=== PATIENT | male | born 1975 ===

== ENCOUNTER → 2023-05-11 11:55 | Outpatient (REF) | payer OTHER, SELFPAY | LOC: MRI 3T 11:55 | PROVIDERS: ATTENDING PHYSICIAN Surgery | DX: C20 Malignant neoplasm of rectum (principal) | CPT/HCPCS: 72197; A9575 ==

== ENCOUNTER → 2023-05-17 15:13 | Outpatient (REF) | payer OTHER, SELFPAY | LOC: RAD 15:13 | PROVIDERS: ATTENDING PHYSICIAN Surgery | DX: C20 Malignant neoplasm of rectum (principal) | CPT/HCPCS: 71270; 74178; Q9967 ==

== ENCOUNTER → 2023-05-31 06:26 | Day surgery (SDC) | payer OTHER, SELFPAY | LOC: GI 06:26 | PROVIDERS: ATTENDING PHYSICIAN Surgery | DX: Z12.11 Encounter for screening for malignant neoplasm of colon (principal); K62.4 Stenosis of anus and rectum; C20 Malignant neoplasm of rectum; Z85.048 Personal history of other malignant neoplasm of rectum, rectosigmoid junction, and anus | CPT/HCPCS: 45380; 88305; 88341; 88342 ==

== ENCOUNTER 2023-08-03 06:15 | Inpatient (IN) | payer OTHER, SELFPAY ==
[2023-08-01 08:15] VITALS: BMI 25.8
[2023-08-01 08:53] LABS: Hematocrit 41.7 % (39.0-52.0); Hemoglobin 12.6 g/dL (13.0-18.0); Mean Corp Hgb Conc. 30.2 g/dL (33.0-37.0); Mean Corpuscular Hgb 20.6 pg (27.0-31.0); Mean Platelet Volume 8.4 fL (7.4-10.4); Platelet Count 400 10^3/uL (130-400); Red Blood Cell Count 6.13 10^6/uL (4.70-6.10); White Blood Cell Count 6.4 10^3/uL (4.8-10.8)
[2023-08-01 09:01] LABS: INR 1.08; PT 13.8 Sec (11.4-14.6)
[2023-08-01 09:02] LABS: APTT 26.4 Sec (23.4-35.0)
[2023-08-01 09:10] LABS: ALT (SGPT) 18 U/L (0-50); AST (SGOT) 36 U/L (17-59); Albumin 4.1 g/dl (3.5-5.0); Alkaline Phosphatase 102 U/L (38-126); Blood Urea Nitrogen 15 mg/dl (9-20); Calcium 9.4 mg/dl (8.4-10.2); Carbon Dioxide 27 mmol/L (22-30); Chloride 101 mmol/L (98-107); Estimated Creatinine Clearance 95 ml/min; Glucose 88 mg/dl (70-99); Sodium 137 mmol/L (135-145); Total Bilirubin 0.5 mg/dl (0.2-1.3); Total Protein 7.3 g/dl (6.3-8.2); eGFR > 60.00
[2023-08-01 09:44] LABS: CEA 1.69 ng/ml
[2023-08-01 09:45] LABS: Glycohemoglobin (HgbA1c) 5.5 % (4.0-5.6)
[2023-08-03] VITALS (17 sets, daily range): BP systolic 0–166; BP diastolic 48–90; BMI 25.8
[2023-08-03] MEDS: NORMOSOL-R 1000 IV ×2 (06:35→17:10)
[2023-08-03] MEDS: TYLENOL 1000 MG PO (06:44)
[2023-08-03] MEDS: HEPARIN 5000 UNITS SC (06:44)
[2023-08-03] MEDS: ENTEREG 12 MG PO (06:44)
--- NOTE | 2023-08-03 14:54 | W.OR.REC1 ---
Rectal Surgery Post Op Note
Immediate Post Op
Primary Surgeon: Dima Gonzalez MD
Assistants: RHIANNA Garrison and Tracey Ramirez PA-C
Urologist: Prince Bourgeois MD
Pre-op Diagnosis: Mid rectal cancer s/p JAMES
Post-op Diagnosis: Same
Procedure Performed: Cystoscopy with bilateral ureteral stents/ICG
Robotic ultra-low anterior resection with diverting loop ileostomy
Anesthesia Type: GET
Specimen / Cultures: Rectosigmoid (suture is proximal and open end is distal)
Distal donut
Estimated Blood Loss: 80cc
Complications: None
Operative Findings: No evidence of metastatic disease
Marked fibrosis at the pelvic inlet
28mm EEA (top of the anal canal)
3cm distal margin plus the donut
#19 Jarrod drain in the pelvis
Patient's daughter updated.
Cancer Report
ASA Score: II
Case Status: Elective
Operation: Low anterior resection (ultra-low)
Modailty: Robotic
Height of lower edge of tumor from anal verge: 5cm
Mobilization of splenic flexure: No
Level of ligation of inferior mesenteric artery: Inferior mesenteric artery
Level of ligation of inferior mesenteric vein: Low
Level of rectal transectiondistal to distal edge of tumor: 3cm plus distal donut
Type of Reconstruction: Stapled end-end
Anastomotic testing method(s): Rectal air infusion under pelvic fluid and Palpation
Creation of stoma: Ileostomy
En bloc resection: No
Metastectomy: No
Completeness of tumor resection: R0
Interoperative Complications: No
Blood transfusion: No
Total Mesorectal Excision photographed: in operative report
[2023-08-03] MEDS: DEMEROL 12.5 MG IV ×2 (15:06→15:16)
[2023-08-03] MEDS: VALIUM INJECTION 2 MG IV (15:32)
[2023-08-03] MEDS: TORADOL 15 MG IV ×2 (16:03→21:18)
[2023-08-03] MEDS: TYLENOL 650 MG PO (16:07)
[2023-08-03] MEDS: DILAUDID 0.5 MG IV ×3 (16:43→19:25)
[2023-08-03] MEDS: FLAGYL 500 MG 100 IV (17:18)
[2023-08-03] MEDS: ATIVAN 1 MG IV (19:37)
[2023-08-03] MEDS: NSS (PRESERVATIVE FREE) 0.5 ML IV (19:38)
[2023-08-03] MEDS: TYLENOL PO (21:21)
[2023-08-04] MEDS: FLAGYL 500 MG 100 IV ×4 (00:01→23:34)
[2023-08-04] MEDS: DILAUDID 0.5 MG IV ×5 (00:07→21:35)
[2023-08-04] MEDS: TYLENOL PO ×2 (00:13→03:46)
[2023-08-04 03:00] VITALS: BP 128/69
[2023-08-04] MEDS: NORMOSOL-R 1000 IV ×2 (03:15→22:12)
[2023-08-04] MEDS: TORADOL 15 MG IV ×4 (03:17→22:13)
[2023-08-04] MEDS: NSS (PRESERVATIVE FREE) 0.5 ML IV ×4 (03:18→22:15)
[2023-08-04] MEDS: ATIVAN 1 MG IV ×4 (03:18→21:15)
[2023-08-04 05:44] LABS: % Basophils 0.2 % (0-2); % Eosinophils 0.3 % (0-6); % Immature Granulocytes 0.5 % (0-0.5); % Lymphocytes 6.4 % (20.5-51.1); % Monocytes 15.8 % (1.7-9.3); % Neutrophils 76.8 % (42.2-75.2); Absolute Immature Granulocytes 0.1 10^3/uL (0-0.05); Absolute Lymphocytes 0.6 10^3/uL (1.2-3.4); Absolute Monocytes 1.5 10^3/uL (0.1-0.6); Absolute Neutrophils 7.3 10^3/uL (1.4-6.5); Hematocrit 37.1 % (39.0-52.0); Hemoglobin 10.9 g/dL (13.0-18.0); Mean Corp Hgb Conc. 29.4 g/dL (33.0-37.0); Mean Corpuscular Hgb 20.1 pg (27.0-31.0); Mean Corpuscular Volume 68.6 fL (80.0-94.0); Mean Platelet Volume 8.6 fL (7.4-10.4); Nucleated Red Blood Cells % 0 % (-); Platelet Count 315 10^3/uL (130-400); Red Blood Cell Count 5.41 10^6/uL (4.70-6.10); Red Cell Dist. Width 19.3 % (11.5-14.5); White Blood Cell Count 9.5 10^3/uL (4.8-10.8)
[2023-08-04 06:00] VITALS: BMI 25.1
[2023-08-04 06:05] LABS: Blood Urea Nitrogen 18 mg/dl (9-20); Calcium 8.1 mg/dl (8.4-10.2); Carbon Dioxide 25 mmol/L (22-30); Chloride 103 mmol/L (98-107); Estimated Creatinine Clearance 95 ml/min; Glucose 88 mg/dl (70-99); Potassium 4.4 mmol/L (3.5-5.1); Sodium 135 mmol/L (135-145); eGFR > 60.00
[2023-08-04 07:00] VITALS: BP 134/77
[2023-08-04] MEDS: FLOMAX 0.400000000000000022 MG PO (08:43)
[2023-08-04] MEDS: ENTEREG 12 MG PO ×2 (08:44→22:13)
[2023-08-04] MEDS: TYLENOL 650 MG PO ×4 (08:44→22:13)
--- NOTE | 2023-08-04 09:02 | W.PN.CRS1 ---
Today's Communication / Plan
-
fulls
lovenox
stent d/c'ed
OOB
Assessment/Plan
-
POD#1 Robotic ultra low anterior resection with diverting loop ileostomy
1. Vitals and labs normal.
2. OOB as tolerated.
3. Advance diet to fulls, d/c IVFs when tolerating po.
4. Loredo to be removed in AM. Stent #2 removed at bedside. Flomax ordered due to low anastamosis.
5. Drain in place - continue until discharge.
6. Lovenox for DVT prophylaxis. TEDS and SCDS in place.
7. Wound RN for ileostomy teaching.
8. OR pathology pending.
9. Pain control: Tylenol/Toradol standing, Dilaudid PRN.
10. Ativan 1mg for anxiety, increased to q6h PRN.
Subjective Data
Procedure
08/03/2023- Robotic ultra low anterior resection with diverting loop ileostomy.
Subjective Data
Date of Service: August 04, 2023
Patient states he has some pain in his lower midline incision but it is controlled. He is hungry. He denies nausea or vomiting. He has some anxiety and the ativan helped but wore off quickly.
Objective Data
-
Vital Signs
Temp Pulse Resp BP Pulse Ox
97.6 F 71 18 134/77 98
08/04/23 07:00 08/04/23 07:00 08/04/23 07:00 08/04/23 07:00 08/04/23 07:00
Intake & Output
08/03/23 08/04/23 08/05/23
06:59 06:59 06:59
Intake Total 2340 / 2340
Output Total 2125 / 2125
Balance 215 / 215
Intake:
Oral fluids 290 / 290
IV fluids (Total) 1949 / 1949
flagyl 50 / 50
normosol 700 / 700
IV piggybacks 100 / 100
Output:
Drain Output (Total) 100 / 100
Right Lower Abdomen Kyle- 100 / 100
Gonzalez
Urine, Loredo 2024 / 2024
Lab Results
08/04/23 04:49
08/04/23 04:49
Physical Exam
-
General: No Acute Distress and AOx3
Abdomen: Soft, Non Distended, Tender (around incisions, mild) and Other (ileostomy warm and pink with stoma chepe in place, bowel sweat. MALIHA drain with serous output. )
Incision: Clear, Dry, Intact
[2023-08-04] MEDS: LEVAQUIN 100 IV (10:15)
[2023-08-04 11:00] VITALS: BP 140/73
--- NOTE | 2023-08-04 14:20 | WOUNDNOTE ---
WOC RN NOTE: Patient visited s/p ileostomy creation on 08/02. Stoma is red and budded. No drainage in pouch at this time. Patient given ileostomy information booklet. Ostomy supplies ordered from [facility] and are at bedside.
[2023-08-04 15:00] VITALS: BP 124/70
--- NOTE | 2023-08-04 15:31 | WOUNDNOTE ---
WOC RN NOTE: With patient's verbal consent, a 8th Story Secure Start Kit was ordered and will be shipped to patient's home.
[2023-08-04] MEDS: LOVENOX 40 MG SC (17:59)
[2023-08-04 23:30] VITALS: BP 148/77
[2023-08-04] MEDS: MELATONIN 5 MG PO (23:34)
[2023-08-05] MEDS: TYLENOL PO ×2 (00:33→05:13)
[2023-08-05] MEDS: NORMOSOL-R IV (00:39)
[2023-08-05] MEDS: DILAUDID 0.5 MG IV ×3 (01:02→09:38)
[2023-08-05] MEDS: TORADOL 15 MG IV ×4 (05:29→21:11)
[2023-08-05 05:52] LABS: % Basophils 0.4 % (0-2); % Eosinophils 3.7 % (0-6); % Immature Granulocytes 0.6 % (0-0.5); % Lymphocytes 8.2 % (20.5-51.1); % Monocytes 13.8 % (1.7-9.3); % Neutrophils 73.3 % (42.2-75.2); Absolute Eosinophils 0.3 10^3/uL (0-0.7); Absolute Immature Granulocytes 0.1 10^3/uL (0-0.05); Absolute Lymphocytes 0.7 10^3/uL (1.2-3.4); Absolute Monocytes 1.2 10^3/uL (0.1-0.6); Absolute Neutrophils 6.1 10^3/uL (1.4-6.5); Hematocrit 37.9 % (39.0-52.0); Hemoglobin 11.3 g/dL (13.0-18.0); Mean Corp Hgb Conc. 29.8 g/dL (33.0-37.0); Mean Corpuscular Hgb 20.5 pg (27.0-31.0); Mean Corpuscular Volume 68.7 fL (80.0-94.0); Mean Platelet Volume 8.3 fL (7.4-10.4); Nucleated Red Blood Cells % 0 % (-); Platelet Count 299 10^3/uL (130-400); Red Blood Cell Count 5.52 10^6/uL (4.70-6.10); Red Cell Dist. Width 19.4 % (11.5-14.5); White Blood Cell Count 8.4 10^3/uL (4.8-10.8)
[2023-08-05 06:00] VITALS: BMI 25.4
[2023-08-05 06:13] LABS: Blood Urea Nitrogen 14 mg/dl (9-20); Calcium 8.6 mg/dl (8.4-10.2); Carbon Dioxide 28 mmol/L (22-30); Chloride 104 mmol/L (98-107); Estimated Creatinine Clearance 95 ml/min; Glucose 91 mg/dl (70-99); Potassium 4.6 mmol/L (3.5-5.1); Sodium 135 mmol/L (135-145); eGFR > 60.00
[2023-08-05 07:00] VITALS: BP 143/74
[2023-08-05] MEDS: FLAGYL 500 MG 100 IV ×3 (07:55→23:01)
[2023-08-05] MEDS: ATIVAN 1 MG IV ×2 (08:00→14:56)
[2023-08-05] MEDS: NSS (PRESERVATIVE FREE) 0.5 ML IV ×2 (08:01→14:56)
[2023-08-05] MEDS: ENTEREG 12 MG PO ×2 (08:02→19:58)
[2023-08-05] MEDS: TYLENOL 650 MG PO ×5 (08:02→23:01)
[2023-08-05] MEDS: FLOMAX 0.400000000000000022 MG PO (08:02)
[2023-08-05] MEDS: LEVAQUIN 100 IV (09:19)
--- NOTE | 2023-08-05 11:22 | W.PN.CRS1 ---
Today's Communication / Plan
-
low residue
roxicodone
Assessment/Plan
-
POD#2 Robotic ultra low anterior resection with diverting loop ileostomy
1. Vitals and labs normal.
2. OOB as tolerated.
3. Advance diet to low residue.
4. D/C shaffer. Post void residual to be done (low anastomosis).
5. Drain in place - continue until discharge.
6. Lovenox for DVT prophylaxis. TEDS and SCDS in place.
7. Wound RN for ileostomy teaching.
8. OR pathology pending.
9. Pain control: Tylenol/Toradol standing, add Roxicodone prn, Dilaudid IV for breakthrough.
10. Ativan 1mg for anxiety q6h PRN.
11. Abx for 72 hours total due to OR spillage.
Subjective Data
Procedure
08/03/2023- Robotic ultra low anterior resection with diverting loop ileostomy.
Subjective Data
Date of Service: August 05, 2023
Patient states he is in 8/10 pain. He has no nausea or vomiting. He tolerated fulls. He has liquid output in his bag.
Objective Data
-
Vital Signs
Temp Pulse Resp BP Pulse Ox
98.0 F 63 18 143/74 98
08/05/23 07:00 08/05/23 07:00 08/05/23 07:00 08/05/23 07:00 08/05/23 08:00
Intake & Output
08/04/23 08/05/23 08/06/23
06:59 06:59 06:59
Intake Total 2340 / 2340 1740 / 1740
Output Total 2125 / 2125 4610 / 4610
Balance 215 / 215 -2870 / -2870
Intake:
Oral fluids 290 / 290 1440 / 1440
IV fluids (Total) 1950 / 1949
flagyl 50 / 50
normosol 700 / 700
IV piggybacks 100 / 100 300 / 300
Output:
Liquid stool amount 1250 / 1250
Ileostomy 1250 / 1250
Drain Output (Total) 100 / 100 110 / 110
Right Lower Abdomen Ykle- 100 / 100 110 / 110
Gonzalez
Urine, Shaffer 2024 3250 / 3250
Lab Results
08/05/23 05:34
08/05/23 05:34
Physical Exam
-
General: No Acute Distress and AOx3
Abdomen: Soft, Non Distended, Tender (around incision sites) and Other (ileostomy warm and pink with liquid stool, stoma chepe in place)
[2023-08-05] MEDS: ROXICODONE 10 MG PO ×3 (12:13→21:13)
--- NOTE | 2023-08-05 14:57 | WOUNDNOTE ---
[facility] RN NOTE: Patient visited to change appliance. This scientific writer reviewed pouch empting with patient. He reports less pain today. Stoma is budded and loop intact. Barrier could not be removed due to close fit around stoma, stoma size and loop. TT
Ida Luis and plan is to keep barrier secure and will reassess Tuesday. MALIHA dressing changed and put to suction. Drainage is serous and slightly blood tinged. There is draining around MALIHA site but skin is intact. KOKO Reyes given update and will
continue to assess MALIHA site. Will continue to follow with patient.
[2023-08-05 15:00] VITALS: BP 150/90
--- NOTE | 2023-08-05 15:03 | WOUNDNOTE ---
[facility] RN NOTE: Patient visited to change appliance. This typewriter mechanic reviewed pouch empting with patient. He reports less pain today. Stoma is budded and loop intact. Barrier could not be removed due to close fit around stoma, stoma size and loop. TT
Ida Luis and plan is to keep barrier secure and will reassess Tuesday. Barrier resecured with micropore tape and barrier rings. MALIHA dressing changed and put to suction. Drainage is serous and slightly blood tinged. There is draining around MALIHA
site but skin is intact. KOKO Reyes given update and will continue to assess MALIHA site. Will continue to follow with patient.
[2023-08-05] MEDS: LOVENOX 40 MG SC (17:07)
--- NOTE | 2023-08-05 18:11 | CM ---
Addendum entered by Jaja Lundberg 08/05/23 18:31:
referrals sent to [facility] and [facility] for vn.
Original Note:
met with patient at bedside.he lives with roommates in house with 3 karen,his bed and bath is on the first level,he ambulates I, and is I with his adl's.his pcp is [facility] and he uses [facility] [place].he has never had
a vn or been to ip rehab.
patient is adm with rectal cancer and is sp low anterior diverting loop ileostomy,wound care nurse cs,drain to be removed,advance to low residue diet,shaffer had to be replaced.plan is home with hcs to sonDonte guajardo juarez's house [address]
anibal gardner.referrals sent to [facility] and [facility].plan home with hcs.
[2023-08-05] MEDS: MELATONIN 5 MG PO (21:13)
[2023-08-05 23:33] VITALS: BP 137/72
[2023-08-06] MEDS: TYLENOL 650 MG PO ×5 (03:45→19:47)
[2023-08-06] MEDS: TORADOL 15 MG IV ×4 (03:46→22:16)
[2023-08-06 06:00] VITALS: BMI 24.7
[2023-08-06] MEDS: ROXICODONE 10 MG PO ×4 (06:13→21:28)
[2023-08-06 07:03] VITALS: BP 135/81
[2023-08-06] MEDS: FLOMAX 0.400000000000000022 MG PO (09:16)
[2023-08-06] MEDS: FLAGYL 500 MG IV (09:19)
--- NOTE | 2023-08-06 10:02 | W.PN.CRS1 ---
Today's Communication / Plan
-
Urology eval
Continue LRD
Assessment/Plan
-
47 yo male with a h/o Mid rectal cancer s/p JAMES
POD#3 Robotic ultra low anterior resection with diverting loop ileostomy
AFVSS
Tolerating diet
High ostomy outputs over the last 24h >2700ml
Urinary retention, shaffer placed after failed voiding trial on 08/04
--continue LRD
--drain in place - continue until discharge.
--Lovenox for DVT prophylaxis. TEDS and SCDS in place.
--Wound RN following for ileostomy teaching.
--OR pathology pending.
--Pain control: Tylenol standing with Roxicodone prn, Dilaudid IV for breakthrough.
--Ativan 1mg for anxiety q6h PRN (changed to PO)
--Completed Abx for 72 hours total due to OR spillage.
--Has been on tamsulosin 0.4mg with failed void trial, will consult urology to evaluate/follow
Anticipate d/c tomorrow if continues to progress well
Subjective Data
Procedure
08/03/2023- Robotic ultra low anterior resection with diverting loop ileostomy.
Subjective Data
Date of Service: August 06, 2023
Patient seen and examined at bedside with Dr. Westfall. Pain improving, better relief with PO oxycodone. Tolerating diet without nausea and vomiting.
Objective Data
-
Vital Signs
Temp Pulse Resp BP Pulse Ox
98.3 F 67 18 135/81 96
08/06/23 07:03 08/06/23 07:03 08/06/23 07:03 08/06/23 07:03 08/06/23 07:03
Intake & Output
08/05/23 08/06/23 08/07/23
06:59 06:59 06:59
Intake Total 1740 / 1740 3060 / 3060
Output Total 4610 / 4610 3995 / 3995
Balance -2870 / -2870 -935 / -935
Intake:
Oral fluids 1440 / 1440 2160 / 2160
IV fluids (Total) 500 / 500
IV piggybacks 300 / 300 400 / 400
Output:
Liquid stool amount 1250 / 1250 2750 / 2750
Ileostomy 1250 / 1250 2750 / 2750
Drain Output (Total) 110 / 110 70 / 70
Right Lower Abdomen Kyle- 110 / 110 70 / 70
Gonzalez
Urine, Shaffer 3250 / 3250 975 / 975
Urine, Voided 200 / 200
Lab Results
08/05/23 05:34
08/05/23 05:34
Physical Exam
-
General: No Acute Distress and AOx3
Abdomen: Soft, Non Distended, Tender (around incision sites) and Other (ileostomy warm and pink with liquid stool, stoma chepe in place, MALIHA with SSF)
Skin: Warm and Dry
Incision: Clear, Dry, Intact (intact glue)
[2023-08-06] MEDS: ATIVAN 1 MG PO ×3 (10:26→22:45)
--- NOTE | 2023-08-06 10:38 | W.PN.URO.CBU ---
Today's Communication / Plan
-
ZENDEJAS OUT AM 06Tuesday REPLACE PRN NO VOID DISETNSION NOON AND IF REPALED THEN TEACH ZENDEJAS AND LG BAG CARE
Assessment / Plan
-
ACUTE URINARY RETENTION MAY BE MULTIFACTORIAL IE ANESTHESIA AND NARCOTIC USE BUR MAY BE OELVIC NERVE INJURY WILL TRY FLOMAX AND VOIDNG TRIAL IF DFAILS THEN HOME WTH ZENDEJAS AND WILL EVALUATE OTPATIENT WITH URODYNAICS ABD TACH CIC
Diagnosis
-
Date of Service: August 06, 2023
-
Patient Diagnosis:ACUTE UTINARY RETENTION AFYTER SURGERY WITH RECTAL CANCER LG NEEDS NARCOITC POOR STRAM 350 CC DRAINED
Post Op Day:
Subjective
-
POOR URINARY STREAM
Objective
-
Vital Signs
Temp Pulse Resp BP Pulse Ox
98.3 F 67 18 135/81 96
08/06/23 07:03 08/06/23 07:03 08/06/23 07:03 08/06/23 07:03 08/06/23 07:03
Intake and Output
08/05/23 08/06/23 08/07/23
06:59 06:59 06:59
Intake Total 1740 / 1740 3060 / 3060
Output Total 4610 / 4610 3995 / 3995
Balance -2870 / -2870 -935 / -935
Intake:
Oral fluids 1440 / 1440 2160 / 2160
IV fluids (Total) 500 / 500
IV piggybacks 300 / 300 400 / 400
Output:
Liquid stool amount 1250 / 1250 2750 / 2750
Ileostomy 1250 / 1250 2750 / 2750
Drain Output (Total) 110 / 110 70 / 70
Right Lower Abdomen Kyle- 110 / 110 70 / 70
Gonzalez
Urine, Zendejas 3250 / 3250 975 / 975
Urine, Voided 200 / 200
Laboratory Results
08/05/23 05:34
08/05/23 05:34
Review of Systems
-
Abdomen/GI: Abdominal Pain
: Difficulty Voiding
Physical Exam
-
General - well developed, well nourished, no acute distress
Chest - clear bilaterally
Abdomen - soft, non-tender, positive bowel sounds, no CVAT, no incisional pain or distention
Genitalia - normal
Rectal - normal
Skin - warm & dry with no rash
Neuro - AOx3, no motor deficits
Extremities - no clubbing, no cyanosis, no edema
Incision - clean, dry
Dressing - clean, dry, intact
Care Review
Data Reviewed
Discussed with: Nursing and Other (GI SURGERY)
CT Scan: Image Pers Reviewed
[2023-08-06 15:10] VITALS: BP 134/80
[2023-08-06] MEDS: FLUSH (NSS) 2 FLUSH IV (15:55)
[2023-08-06] MEDS: LOVENOX 40 MG SC (17:24)
[2023-08-06] MEDS: MELATONIN 5 MG PO (22:45)
[2023-08-06 23:14] VITALS: BP 143/85
[2023-08-07] MEDS: TYLENOL PO (00:31)
[2023-08-07] MEDS: TYLENOL 650 MG PO ×3 (04:22→13:08)
[2023-08-07] MEDS: TORADOL 15 MG IV ×2 (04:22→09:20)
[2023-08-07 06:00] VITALS: BMI 24.5
--- NOTE | 2023-08-07 06:00 | PTCARENOTE ---
At 06:00 removed Loredo catheter (per Dr. Griffith's order), faiza urine electronically documented, placed on Time & Amount; urinal placed in bathroom and patient acknowledged understanding of importance of the need for measuring urine output.
[2023-08-07] MEDS: ROXICODONE 10 MG PO ×2 (06:09→13:19)
[2023-08-07 07:29] VITALS: BP 138/69
[2023-08-07] MEDS: FLOMAX 0.400000000000000022 MG PO (09:20)
[2023-08-07] MEDS: ATIVAN 1 MG PO (09:56)
--- NOTE | 2023-08-07 10:06 | W.PN.URO.CBU ---
Today's Communication / Plan
-
if home with shaffer demonstrate shaffer and leg bag care ty
Assessment / Plan
-
ACUTE URINARY RETENTION MAY BE MULTIFACTORIAL IE ANESTHESIA AND NARCOTIC USE BUR MAY BE OELVIC NERVE INJURY WILL TRY FLOMAX AND VOIDNG TRIAL IF DFAILS THEN HOME WTH SHAFFER AND WILL EVALUATE OTPATIENT WITH URODYNAICS ABD TACH CIC
Diagnosis
-
Date of Service: August 07, 2023
-
Patient Diagnosis:
Post Op Day:
Patient Diagnosis:ACUTE UTINARY RETENTION AFYTER SURGERY WITH RECTAL CANCER LG NEEDS NARCOITC POOR STRAM 350 CC DRAINED
Post Op Day:
Subjective
-
shaffer out home today but not yet voided
Objective
-
Vital Signs
Temp Pulse Resp BP Pulse Ox
97.8 F 61 19 138/69 99
08/07/23 07:29 08/07/23 07:29 08/07/23 07:29 08/07/23 07:29 08/07/23 07:29
Intake and Output
08/06/23 08/07/23 08/08/23
06:59 06:59 06:59
Intake Total 3060 / 3060 1800 / 1800
Output Total 3995 / 3995 2825 / 2825
Balance -935 / -935 -1025 / -1025
Intake:
Oral fluids 2160 / 2160 1800 / 1800
IV fluids (Total) 500 / 500
IV piggybacks 400 / 400
Output:
Liquid stool amount 2750 / 2750 200 / 200
Ileostomy 2750 / 2750 200 / 200
Drain Output (Total) 70 / 70 25 / 25
Right Lower Abdomen Kyle- 70 / 70 25 / 25
Gonzalez
Urine, Shaffer 975 / 975 2600 / 2600
Urine, Voided 200 / 200
Laboratory Results
08/05/23 05:34
08/05/23 05:34
Review of Systems
-
Abdomen/GI: Abdominal Pain
: Difficulty Voiding
Physical Exam
-
General - well developed, well nourished, no acute distress
Chest - clear bilaterally
Abdomen - soft, non-tender, positive bowel sounds, no CVAT, no incisional pain or distention
Genitalia - normal
Rectal - normal
Skin - warm & dry with no rash
Neuro - AOx3, no motor deficits
Extremities - no clubbing, no cyanosis, no edema
Incision - clean, dry
Dressing - clean, dry, intact
Care Review
Data Reviewed
Discussed with: Nursing and Other (gi surgery)
--- NOTE | 2023-08-07 10:44 | W.PN.CRS1 ---
Today's Communication / Plan
-
Dispo planning
Assessment/Plan
-
47 yo male with a h/o Mid rectal cancer s/p JAMES
POD#4 Robotic ultra low anterior resection with diverting loop ileostomy
AFVSS
Tolerating diet
Ostomy outputs have slowed from previous, flatus/stool in appliance
Urinary retention, shaffer placed after failed voiding trial on 08/04, shaffer out for voiding trial today
--continue LRD
--drain removed in anticipation of d/c
--Lovenox for DVT prophylaxis. TEDS and SCDS in place.
--Wound RN following for ileostomy teaching. VNA upon d/c
--OR pathology pending.
--Pain control: Tylenol standing with Roxicodone prn, Dilaudid IV for breakthrough.
--Has been on tamsulosin 0.4mg with failed void trial, urology now following. void trial again today, if fails will d/c home with shaffer for outpatient follow up with urology
D/C later today pending outcome of voiding trial
Subjective Data
Procedure
08/03/2023- Robotic ultra low anterior resection with diverting loop ileostomy.
Subjective Data
Date of Service: August 07, 2023
Patient seen and examined at bedside with Dr. Westfall. Denies n/v. Tolerating diet. OOB/ambulating. Shaffer removed for voiding trial/DTV
Objective Data
-
Vital Signs
Temp Pulse Resp BP Pulse Ox
97.8 F 61 19 138/69 99
08/07/23 07:29 08/07/23 07:29 08/07/23 07:29 08/07/23 07:29 08/07/23 07:29
Intake & Output
08/06/23 08/07/23 08/08/23
06:59 06:59 06:59
Intake Total 3060 / 3060 1800 / 1800
Output Total 3995 / 3995 2825 / 2825
Balance -935 / -935 -1025 / -1025
Intake:
Oral fluids 2160 / 2160 1800 / 1800
IV fluids (Total) 500 / 500
IV piggybacks 400 / 400
Output:
Liquid stool amount 2750 / 2750 200 / 200
Ileostomy 2750 / 2750 200 / 200
Drain Output (Total) 70 / 70 25 /
Right Lower Abdomen Kyle- 70 / 70 /
Gonzalez
Urine, Shaffer 975 / 975 2600 / 2600
Urine, Voided 200 / 200
Lab Results
08/05/23 05:34
08/05/23 05:34
Physical Exam
-
General: No Acute Distress and AOx3
Abdomen: Soft, Non Distended, Tender (around incision sites) and Other (ileostomy warm and pink with liquid stool, stoma chepe in place, MALIHA with SSF (removed))
Skin: Warm and Dry
Incision: Clear, Dry, Intact (intact glue)
--- NOTE | 2023-08-07 13:48 | CM ---
Addendum entered by Melissa Ventura 08/07/23 15:54:
[facility] has declined patient, CM sent referrals to [facility] and formerly [facility] at home. CM spoke with JJ Nevarez who indicated that patient should contact Dr. Gonzalez office with any issues. CM spoke with above companies to request
contact to confirm ability to accept. Patient is aware. Patient contact number is [phone].
Addendum entered by Melissa Ventura 08/07/23 14:43:
CM updated patient and his sister. CM updated [facility] and patient sister to [facility] patient. awaiting response from [facility].
Addendum entered by Melissa Ventura 08/07/23 14:40:
Patient provided updated referral to [facility] address [address], [place] [address] CM updated referral with [facility]; awaiting response.
Original Note:
Patient referral to [facility] declined and CM sent referral to [facility] awaiting response/acceptance. CM will continue to follow for discharge planning needs.
\\
Plan; home with ; awaiting [facility] confirmation of acceptance.
[2023-08-07 14:32] VITALS: BP 158/80
--- NOTE | 2023-08-07 15:21 | W.DCSUMMARY ---
Discharge Summary
Discharge Data
Date of Admission: 08/03/23
Date of Discharge: 08/07/23
-
Pending Results: No
Hospital Course
47 year old male presenting for surgical management of mid rectal cancer status post JAMES with oncology. He underwent a robotic ultra low anterior resection with diverting loop ileostomy without procedural complication. Pathology from OR remains
pending. Ureteral stents placed intraoperatively for identification of the ureters were removed post operatively without incident. The patient failed initial void trial and shaffer catheter was placed post operatively for management. He was followed
by urology on flomax with successful voiding trial on date of discharge. He was instructed to follow with urology as an outpatient if voiding difficulty persists and provided with tamsulosin prescription.
Prior to admission, the patient was regularly taking oxycodone as prescribed by oncology with opioid tolerance noted while inpatient. In addition to acetaminophen and NSAIDs for analgesic management, the oxycodone dosage was increased from 5mg to
10mg post operatively with good pain relief. He also noted being quite anxious during his stay and Ativan was utilized for these symptoms which he reports he had been on previously as prescribed by his PCP. Prescriptions where provided to the
patient on discharge for anxiolytic and analgesic for the short term with discussion regarding possible need for pain management in follow up if pain persists as well as follow up with PCP, especially in regards to anxiety. Outpatient follow up with
surgery arranged in the coming weeks.
Discharge Plan
-
Patient Disposition: Home (Routine Discharge)
Discharge Diagnosis/Procedures: lower anterior resection
Condition: Good
Diet: Low Residue
Activity: No strenuous activity
Additional Activity: No lifting over 10lbs (gallon of milk)
Driving Restrictions: No driving for 1 week
Bathing Restrictions: OK to Shower
Wound Care: Allow glue to naturally fall off. Do not pick at incisions.
Activity Restrictions/Additional Instructions:
Call your surgeon if you have worsening pain, nausea with vomiting or a fever >100.5. Call your urologist if you have difficulty voiding.
Instructions: Low Fiber Diet
Referrals:
Urban Gonzalez MD [Active] - in two weeks
Blu Griffith MD [Active] - (if trouble voiding call Dr Ean [id number] urolgy )
Sravanthi Norris MD [Family Provider] -
Additional Discharge Medication Instructions: Tylenol or Ibuprofen as needed for pain. Maximum amount of Tylenol is 4,000mg in 24 hours. Maximum amount of Ibuprofen is 3,200mg in 24 hours.
Prescriptions:
New
oxycodone 10 mg tablet
10 mg PO Q8H PRN (Reason: severe pain) Qty: 30 0RF
lorazepam 1 mg tablet
1 mg PO BID PRN (Reason: anxiety) Qty: 10 0RF
tamsulosin 0.4 mg Capsule
0.4 mg PO DAILY Qty: 30 0RF
Continued
oxycodone 5 mg Tablet
5 mg PO Q8H PRN (Reason: moderate pain) Qty: 0 0RF
Discontinued
Sutab 1.479-0.188- 0.225 gram Tablet
0 tab PO PER PKG DIR
metronidazole 500 mg Tablet
500 mg PO DIRECTED
Rx Instructions:
PRE-OP
neomycin 500 mg Tablet
1,000 mg PO DIRECTED
Rx Instructions:
PRE-OP
Discharge Orders:
Discharge Patient (As Directed); Ordered 08/07/23
Ordered By: Daysi Nevarez
Discharge Date and Time
Print Language: GERMAN
== END 2023-08-07 16:38 | disposition home health service (06) | DRG 331 ==
LOC: 2 SOUTH 06:15
PROVIDERS: Physician Assistant; ADMITTING PHYSICIAN Surgery; CONSULT PHYSICIAN Specialist; FAMILY PHYSICIAN Family Medicine
PROC: 0DBN4ZZ Excision of Sigmoid Colon, Percutaneous Endoscopic Approach (ICD-10-PCS; 2023-08-03)
PROC: 0T788DZ Dilation of Bilateral Ureters with Intraluminal Device, Via Natural or Artificial Opening Endoscopic (ICD-10-PCS; 2023-08-03)
PROC: 8E0W4CZ Robotic Assisted Procedure of Trunk Region, Percutaneous Endoscopic Approach (ICD-10-PCS; 2023-08-03)
PROC: 0DTP4ZZ Resection of Rectum, Percutaneous Endoscopic Approach (ICD-10-PCS; 2023-08-03)
PROC: 0D1B4Z4 Bypass Ileum to Cutaneous, Percutaneous Endoscopic Approach (ICD-10-PCS; 2023-08-03)
DX: C20 Malignant neoplasm of rectum (principal); F90.9 Attention-deficit hyperactivity disorder, unspecified type; F32.A Depression, unspecified; F41.9 Anxiety disorder, unspecified; R33.9 Retention of urine, unspecified; Z79.891 Long term (current) use of opiate analgesic; Z79.899 Other long term (current) drug therapy; Z87.820 Personal history of traumatic brain injury
CPT/HCPCS: 88304; 88309; 36415; 80048; 80053; 82378; 83036; 85025; 85027; 85610; 85730; 86850; 86900; 86901; A4300; C1769

== ENCOUNTER 2023-10-20 06:01 | Inpatient (IN) | payer OTHER, SELFPAY ==
[2023-10-18 13:53] LABS: % Basophils 0.9 % (0-2); % Eosinophils 4.1 % (0-6); % Immature Granulocytes 0.6 % (0-0.5); % Lymphocytes 18.3 % (20.5-51.1); % Monocytes 12.7 % (1.7-9.3); % Neutrophils 63.4 % (42.2-75.2); Absolute Eosinophils 0.2 10^3/uL (0-0.7); Absolute Lymphocytes 0.9 10^3/uL (1.2-3.4); Absolute Monocytes 0.6 10^3/uL (0.1-0.6); Absolute Neutrophils 2.9 10^3/uL (1.4-6.5); Hematocrit 42.2 % (39.0-52.0); Hemoglobin 12.6 g/dL (13.0-18.0); Mean Corp Hgb Conc. 29.9 g/dL (33.0-37.0); Mean Corpuscular Hgb 20.6 pg (27.0-31.0); Mean Corpuscular Volume 68.8 fL (80.0-94.0); Mean Platelet Volume 8.4 fL (7.4-10.4); Nucleated Red Blood Cells % 0 % (-); Platelet Count 324 10^3/uL (130-400); Red Blood Cell Count 6.13 10^6/uL (4.70-6.10); Red Cell Dist. Width 20.5 % (11.5-14.5); White Blood Cell Count 4.6 10^3/uL (4.8-10.8)
[2023-10-18 13:58] LABS: ALT (SGPT) 33 U/L (0-50); AST (SGOT) 40 U/L (17-59); Albumin 4.2 g/dl (3.5-5.0); Alkaline Phosphatase 105 U/L (38-126); Blood Urea Nitrogen 10 mg/dl (9-20); Calcium 9.2 mg/dl (8.4-10.2); Carbon Dioxide 27 mmol/L (22-30); Chloride 103 mmol/L (98-107); Glucose 86 mg/dl (70-99); Potassium 4.3 mmol/L (3.5-5.1); Sodium 141 mmol/L (135-145); Total Bilirubin 0.6 mg/dl (0.2-1.3); Total Protein 7.3 g/dl (6.3-8.2); eGFR > 60.00
[2023-10-18 14:04] LABS: APTT 25.8 Sec (23.4-35.0); INR 1.02; PT 13.2 Sec (11.4-14.6)
[2023-10-18 14:31] LABS: CEA 1.45 ng/ml
[2023-10-19 09:27] LABS: Glycohemoglobin (HgbA1c) 5.4 % (4.0-5.6)
[2023-10-20] VITALS (16 sets, daily range): BP systolic 114–144; BP diastolic 46–81; BMI 27.2
[2023-10-20] MEDS: NORMOSOL-R/PLASMALYTE-A 1000 IV ×3 (06:42→21:00)
[2023-10-20] MEDS: ENTEREG 12 MG PO (06:53)
[2023-10-20] MEDS: HEPARIN 5000 UNITS SC (06:53)
[2023-10-20] MEDS: TYLENOL 1000 MG PO (06:56)
--- NOTE | 2023-10-20 09:19 | W.IMMPOSTOP ---
Surgical Immed Post Op Note
-
Primary Surgeon: Dima Gonzalez MD
Assistants: RHIANNA Rehman; MARY Leon
Pre-op Diagnosis: Ileostomy
Post-op Diagnosis: Ileostomy
Procedure Performed: Flexible sigmoidoscopy and ileostomy closure
Anesthesia Type: General
Specimen / Cultures: None
Estimated Blood Loss: 15cc
Complications: None
Operative Findings: Normal coloanal anastomosis
Stapled functional end to end anastomosis
Patient's updated.
[2023-10-20] MEDS: DILAUDID 0.5 MG IV ×4 (09:38→12:22)
[2023-10-20] MEDS: TYLENOL 650 MG PO ×4 (11:59→23:04)
[2023-10-20] MEDS: TORADOL 15 MG IV ×3 (11:59→23:05)
--- NOTE | 2023-10-20 12:40 | PTCARENOTE ---
Pt arrived to 2S in bed. Full assessment completed. IVF initiated. Abdominal DSG with a moderate amount of drainage noted. Loredo catheter clean and intact draining yellow urine. PRN dilaudid provided for c/o abdominal pain 08/16. Pt instructed to
ring for assistance getting OOB, verbalized understanding. Bed locked and in the lowest position, safety maintained. Oriented to room and call barnett.
[2023-10-20] MEDS: ATIVAN 0.5 MG PO ×3 (13:33→22:29)
[2023-10-20] MEDS: DILAUDID 1 MG IV ×2 (16:36→21:01)
[2023-10-21] MEDS: DILAUDID 1 MG IV ×2 (01:52→08:23)
[2023-10-21 03:17] VITALS: BP 117/56
[2023-10-21] MEDS: TYLENOL PO ×3 (04:00→23:09)
[2023-10-21] MEDS: TORADOL 15 MG IV ×4 (05:03→23:05)
[2023-10-21 06:18] LABS: % Basophils 0.1 % (0-2); % Immature Granulocytes 0.4 % (0-0.5); % Lymphocytes 6.6 % (20.5-51.1); % Neutrophils 83.9 % (42.2-75.2); Absolute Lymphocytes 0.6 10^3/uL (1.2-3.4); Absolute Monocytes 0.8 10^3/uL (0.1-0.6); Absolute Neutrophils 7.5 10^3/uL (1.4-6.5); Hematocrit 40.6 % (39.0-52.0); Hemoglobin 12.3 g/dL (13.0-18.0); Mean Corp Hgb Conc. 30.3 g/dL (33.0-37.0); Mean Corpuscular Hgb 21.4 pg (27.0-31.0); Mean Corpuscular Volume 70.5 fL (80.0-94.0); Mean Platelet Volume 8.9 fL (7.4-10.4); Nucleated Red Blood Cells % 0 % (-); Platelet Count 306 10^3/uL (130-400); Red Blood Cell Count 5.76 10^6/uL (4.70-6.10); Red Cell Dist. Width 19.9 % (11.5-14.5); White Blood Cell Count 8.9 10^3/uL (4.8-10.8)
[2023-10-21 06:43] LABS: Blood Urea Nitrogen 12 mg/dl (9-20); Calcium 8.7 mg/dl (8.4-10.2); Carbon Dioxide 28 mmol/L (22-30); Chloride 101 mmol/L (98-107); Estimated Creatinine Clearance 98 ml/min; Glucose 88 mg/dl (70-99); Potassium 4.5 mmol/L (3.5-5.1); Sodium 138 mmol/L (135-145); eGFR > 60.00
[2023-10-21] MEDS: NORMOSOL-R/PLASMALYTE-A 1000 IV (07:12)
[2023-10-21 07:23] VITALS: BP 123/79
[2023-10-21] MEDS: ENTEREG 12 MG PO ×2 (08:20→19:58)
[2023-10-21] MEDS: TYLENOL 650 MG PO ×4 (08:20→23:05)
--- NOTE | 2023-10-21 09:09 | W.PN.CRS1 ---
Today's Communication / Plan
-
fulls
Lovenox
DC Loredo
Assessment/Plan
-
POD#1 Flexible sigmoidoscopy and resection and closure of ileostomy.
-Vitals and labs normal
-Tolerating clears, advance to full liquid diet
-Lovenox for DVT prophylaxis. Teds and SCDs in place.
-DC Loredo
-DC IV fluids when tolerating p.o.
-OR pathology pending
-Out of bed as tolerated
-Pain medication: Tylenol and Toradol standing, Dilaudid IV as needed. Will add oxycodone.
Subjective Data
Procedure
10/20/2023- Flexible sigmoidoscopy and resection and closure of ileostomy.
Subjective Data
Date of Service: October 21, 2023
Patient states he feels well. He had a little nausea yesterday which has resolved. His pain is mild. He has no complaints otherwise.
Objective Data
-
Vital Signs
Temp Pulse Resp BP Pulse Ox
97.7 F 75 19 123/79 99
10/21/23 07:23 10/21/23 07:23 10/21/23 07:23 10/21/23 07:23 10/21/23 07:23
Intake & Output
10/20/23 10/21/23 10/22/23
06:59 06:59 06:59
Intake Total 3160 / 3160
Output Total 3725 / 3725
Balance -565 / -565
Intake:
Oral fluids 1560 / 1560
IV fluids (Total) 1600 / 1600
Normosal 400 / 400
Output:
Urine, Loredo 7465 / 3725
Lab Results
10/21/23 04:27
10/21/23 04:27
Physical Exam
-
General: No Acute Distress and AOx3
Abdomen: Soft, Non Distended and Non Tender
Skin: Warm and Dry
Incision: Clear, Dry, Intact
[2023-10-21] MEDS: ATIVAN 0.5 MG PO ×2 (09:14→20:00)
--- NOTE | 2023-10-21 11:20 | CM ---
Pt admitted for resection and closure of ileostomy; pmh - depression, anxiety, TBI 2017, colon Ca
Pt reports he lives in a 2 story home with friends; 3 steps to enter
Currently unemployed, independent with adl's
DME - cane, sling
SNF/HH - denies past hx
Has ride at discharge
PCP - Sravanthi Norris
Pharm - [facility]
Given info for [employer] for community resources
Plan - anticipate home no needs vs w/HH
[2023-10-21 11:22] VITALS: BP 134/81
[2023-10-21] MEDS: ROXICODONE 10 MG PO (11:39)
[2023-10-21 15:20] VITALS: BP 135/75
[2023-10-21] MEDS: NORMOSOL-R/PLASMALYTE-A IV (15:36)
[2023-10-21] MEDS: LOVENOX 40 MG SC (17:37)
[2023-10-21] MEDS: ROXICODONE 5 MG PO (17:40)
[2023-10-21] MEDS: ZOFRAN 4 MG IV (20:00)
[2023-10-21] MEDS: MELATONIN 5 MG PO (22:45)
[2023-10-21 23:05] VITALS: BP 129/92
[2023-10-22] MEDS: TYLENOL PO (05:35)
[2023-10-22] MEDS: TORADOL 15 MG IV ×2 (05:50→17:21)
[2023-10-22] MEDS: ATIVAN 0.5 MG PO ×2 (05:55→20:06)
[2023-10-22 06:00] VITALS: BMI 26.3
[2023-10-22 08:05] VITALS: BP 134/60
[2023-10-22] MEDS: ENTEREG 12 MG PO ×2 (08:13→20:06)
[2023-10-22] MEDS: TYLENOL 650 MG PO ×4 (08:13→20:06)
[2023-10-22] MEDS: ROXICODONE 10 MG PO (08:17)
--- NOTE | 2023-10-22 10:16 | W.PN.GS2 ---
Addendum entered and electronically signed by Ed Sanders MD 10/22/23 11:55:
Patient seen and examined. Agree with assessment plan as documented below.
No major complaints. Reports some pains radiating around to his old ostomy site. Denies nausea or vomiting. Passing flatus, no BM. Ambulating. Voiding.
Gen: NAD
Abd: soft, minimal tenderness, ND, non-peritoneal, dressing taken down, incision c/d/i - no erythema, ecchymosis or drainage, marcelo in place
Patient is a 47 yo M with h/o mid rectal ca s/p JAMES and low anterior resection with diverting loop ileostomy earlier this year now POD #2 Ileostomy closure with flex sig
AFVSS
Progressing well post operatively
+Flatus, no BM as of yet
--Advance to LRD
--D/C IVF
--Multimodal analgesics
--Lovenox and SCD's for VTE ppx
--OOB/Ambulate
--C/W Entereg
Original Note:
Today's Communication / Plan
-
Advance diet
Assessment / Plan
-
47 yo male with h/o mid rectal ca s/p JAMES and low anterior resection with diverting loop ileostomy earlier this year now POD #2 Ileostomy closure with flex sig
AFVSS
Progressing well post operatively
+Flatus, no BM as of yet
--Advance to LRD
--D/C IVF
--Multimodal analgesics
--Lovenox and SCD's for VTE ppx
--OOB/Ambulate
--C/W entereg
Dispo planning: d/c later today vs more likely tomorrow pending diet tolerance/bowel recovery
Subjective Data
-
Date of Service: October 22, 2023
Patient seen and examined at bedside with Dr. Sanders. Denies n/v. Tolerating liquid diet. Pain is well managed. Passing flatus but no BM as of yet
Objective Data
-
Intake and Output
10/21/23 10/22/23 10/23/23
06:59 06:59 06:59
Intake Total 3160 / 3160 2400 / 2400
Output Total 3725 / 3725 1250 / 1250
Balance -565 / -565 1150 / 1150
Intake:
Oral fluids 1560 / 1560 2400 / 2400
IV fluids (Total) 1600 / 1600
Normosal 400 / 400
Output:
Urine, [place] 3725 / 3725 500 / 500
Urine, Voided 750 / 750
Other:
Number of approximated MODERATE 3
amounts of urine
Vital Signs
Temp Pulse Resp BP Pulse Ox
97.5 F 64 12 134/60 98
10/22/23 08:05 10/22/23 08:05 10/22/23 08:05 10/22/23 08:05 10/22/23 08:05
Lab Results
10/21/23 04:27
10/21/23 04:27
Calcium 8.7 mg/dl (8.4-10.2) 10/21/23 04:27
Total Bilirubin 0.6 mg/dl (0.2-1.3) 10/18/23 13:31
AST 40 U/L (17-59) 10/18/23 13:31
ALT 33 U/L (0-50) 10/18/23 13:31
Alkaline Phosphatase 105 U/L (38-126) 10/18/23 13:31
Total Protein 7.3 g/dl (6.3-8.2) 10/18/23 13:31
Albumin 4.2 g/dl (3.5-5.0) 10/18/23 13:31
Physical Exam
-
NAD
ABD soft, nt, nd
Right abd incision with SS drainage, janae out. Healthy appearing tissues. Dressing changed. Lap incisions well approximated.
[2023-10-22] MEDS: ROXICODONE 5 MG PO ×3 (12:59→21:25)
[2023-10-22] MEDS: TORADOL IV (12:59)
[2023-10-22 15:40] VITALS: BP 142/83
[2023-10-22] MEDS: LOVENOX 40 MG SC (17:16)
[2023-10-22] MEDS: MELATONIN 5 MG PO (21:23)
[2023-10-22 23:36] VITALS: BP 118/83
[2023-10-23] MEDS: TORADOL IV (00:38)
[2023-10-23] MEDS: TYLENOL PO ×2 (00:38→05:02)
[2023-10-23 06:00] VITALS: BMI 26.5
[2023-10-23] MEDS: TORADOL 15 MG IV ×2 (06:17→12:34)
[2023-10-23] MEDS: ROXICODONE 10 MG PO (06:21)
[2023-10-23] MEDS: ENTEREG 12 MG PO (07:53)
[2023-10-23] MEDS: TYLENOL 650 MG PO ×2 (07:53→12:33)
[2023-10-23 08:01] VITALS: BP 135/80
[2023-10-23] MEDS: ATIVAN 0.5 MG PO (08:02)
[2023-10-23] MEDS: MIRALAX 17 GRAMS PO (08:48)
--- NOTE | 2023-10-23 08:52 | W.PN.GS2 ---
Addendum entered and electronically signed by Ed Sanders MD 10/23/23 09:15:
Patient seen and examined. Agree with assessment plan as documented below.
No complaints. Denies worsening abdominal pain. No nausea or vomiting. Passing flatus, no BM. Afebrile. Voiding. Ambulating.
Gen: NAD
Abd: soft, NT/ND, non-peritoneal, incision c/d/i - no erythema, ecchymosis or drainage
Patient is a 47 yo M POD#3 s/p ileostomy closure with flex sig
AFVSS
Progressing well post operatively
+Flatus, no BM as of yet
--Continue LRD
--Miralax x1 dose
--Multimodal analgesics
--Lovenox and SCD's for VTE ppx
--OOB/Ambulate
--C/W entereg
Dispo planning: d/c later today if continuing to tolerate diet
Original Note:
Today's Communication / Plan
-
Dispo planning
Assessment / Plan
-
47 yo male with h/o mid rectal ca s/p JAMES and low anterior resection with diverting loop ileostomy earlier this year now POD #3 Ileostomy closure with flex sig
AFVSS
Progressing well post operatively
+Flatus, no BM as of yet
--Continue LRD
--Miralax x1 dose
--Multimodal analgesics
--Lovenox and SCD's for VTE ppx
--OOB/Ambulate
--C/W entereg
Dispo planning: d/c later today if continuing to tolerate diet
Subjective Data
-
Date of Service: October 23, 2023
Patient seen and examined at bedside with Dr. Sanders. Denies n/v. Tolerating diet. Passing flatus, no BM as of yet. Ambulating well. Pain well managed.
Objective Data
-
Intake and Output
10/22/23 10/23/23 10/24/23
06:59 06:59 06:59
Intake Total 2400 / 2400 1919
Output Total 1250 / 1250
Balance 1150 / 1150 1919
Intake:
Oral fluids 2400 / 2400 1919
Output:
Urine, [place] 500 / 500
Urine, Voided 750 / 750
Other:
Number of approximated MODERATE 3 3
amounts of urine
Vital Signs
Temp Pulse Resp BP Pulse Ox
97.4 F 65 16 135/80 96
10/23/23 08:01 10/23/23 08:01 10/23/23 08:01 10/23/23 08:01 10/23/23 08:01
Lab Results
10/21/23 04:27
10/21/23 04:27
Calcium 8.7 mg/dl (8.4-10.2) 10/21/23 04:27
Total Bilirubin 0.6 mg/dl (0.2-1.3) 10/18/23 13:31
AST 40 U/L (17-59) 10/18/23 13:31
ALT 33 U/L (0-50) 10/18/23 13:31
Alkaline Phosphatase 105 U/L (38-126) 10/18/23 13:31
Total Protein 7.3 g/dl (6.3-8.2) 10/18/23 13:31
Albumin 4.2 g/dl (3.5-5.0) 10/18/23 13:31
Physical Exam
-
NAD
ABD soft, nt, nd
Right abd incision with intact marcelo, healing well. No significant drainage noted with dressing change. Lap incisions well approximated.
--- NOTE | 2023-10-23 12:51 | W.DCSUMMARY ---
Discharge Summary
Discharge Data
Date of Admission: 10/20/23
Date of Discharge: 10/23/23
-
Pending Results: No
Hospital Course
Mr Veronica is a 47 yo male with a history of mid rectal ca s/p JAMES and low anterior resection with diverting loop ileostomy earlier this year who presented for resection and closure of the ileostomy. He did well in the immediate post operative period
and his diet was able to be advanced and well tolerated. Pain was well controlled post operatively. He was discharged to home for outpatient follow up in the coming weeks.
Discharge Plan
-
Patient Disposition: Home (Routine Discharge)
Discharge Diagnosis/Procedures: ileostomy closure
Condition: Good
Diet: Low Residue
Activity: No strenuous activity
Additional Activity: No getting over 10 pounds (gallon of milk)
Driving Restrictions: No driving for 1 week
Bathing Restrictions: OK to Shower
Wound Care: Cover surgical wound with gauze and tape. Change daily. Okay to leave open to air when showering. Bacilio will be removed at your follow up appointment
Instructions: Low Fiber Diet
Referrals:
Urban Gonzalez MD [Active] - in two weeks
Sravanthi Norris MD [Family Provider] -
Prescriptions:
New
oxycodone 5 mg tablet
5 mg PO Q6H PRN (Reason: Pain) Qty: 60 0RF
lorazepam 1 mg tablet
1 mg PO BID PRN (Reason: anxiety) Qty: 10 0RF
acetaminophen [acetaminophen] 325 mg tablet
650 mg PO Q4HPRN PRN (Reason: mild pain) Qty: 1 0RF
ibuprofen 200 mg tablet
400 - 600 mg PO Q6HPRN PRN (Reason: moderate pain) Qty: 1 0RF
Discontinued
oxycodone 5 mg Tablet
5 mg PO Q8H PRN (Reason: moderate pain) Qty: 0 0RF
Discharge Orders:
Discharge Patient (As Directed); Ordered 10/23/23
Ordered By: Daysi Nevarez
Discharge Date and Time
Print Language: SPANISH
[2023-10-23 12:54] VITALS: BP 149/88
--- NOTE | 2023-10-23 15:04 | CM ---
Pt for discharge
Pt has transport home
Plan - home no needs
== END 2023-10-23 14:42 | disposition home or self-care (01) | DRG 331 ==
LOC: 2 SOUTH 06:01
PROVIDERS: ADMITTING PHYSICIAN Surgery; FAMILY PHYSICIAN Family Medicine
PROC: 0DBB0ZZ Excision of Ileum, Open Approach (ICD-10-PCS; 2023-10-20)
PROC: 0DJD8ZZ Inspection of Lower Intestinal Tract, Via Natural or Artificial Opening Endoscopic (ICD-10-PCS; 2023-10-20)
DX: Z43.2 Encounter for attention to ileostomy (principal); F90.9 Attention-deficit hyperactivity disorder, unspecified type; F41.9 Anxiety disorder, unspecified; F32.A Depression, unspecified; Z92.21 Personal history of antineoplastic chemotherapy; Z88.0 Allergy status to penicillin; Z85.048 Personal history of other malignant neoplasm of rectum, rectosigmoid junction, and anus; Z92.3 Personal history of irradiation
CPT/HCPCS: 36415; 80048; 80053; 82378; 83036; 85025; 85610; 85730; 86850; 86900; 86901; A4648; C1776; J1335